=== PATIENT | female | born 1945 | race Caucasian/White ===

== ENCOUNTER → 2016-11-18 | Outpatient (CLI) | payer MEDICARE, OTHER ==
[~2016-11-18] MED LIST: B COMPLEX #11 TA1 PO; CALCIUM CITRAT200 M2; GLUCOSAMINE & C1 CA1 PO; LOTREL 10 MG-201 CAP PO; MAG-OX 400400 MG/TAB PO; NORCO 325 MG-51 TAB PO; NORCO 325 MG-7.1 TAB PO; OMEGA-31 SGL PO; ORACEA40MG PO; PRAVACHOL 20MG20 MG PO; ROXICODONE 55 MG/TAB PO; VITAMIND3 5000; VOLTAREN 75 DR75 MG PO
== END ==
LOC: MC.RAD 14:40
DX: Z12.31 Encounter for screening mammogram for malignant neoplasm of breast (principal); D24.1 Benign neoplasm of right breast

== ENCOUNTER 2017-02-03 16:04 | Emergency (ER) | payer MEDICARE, OTHER ==
[~2017-02-03] VITALS: Ht 154.9 cm; Wt 52.3 kg
[2017-02-03 16:09] VITALS: TEMP 98
[2017-02-03 16:46] LABS: BASO # 0.1 (0.0-0.2); BASO % 0.8 % (0.0-2.0); EOS # 0.2 (0.0-0.7); GRAN # 3.1 (1.4-6.5); GRAN % 51.2 % (42.2-75.2); LYMPH # 2.3 (1.2-3.4); LYMPH % 37.6 % (20.0-51.0); MEAN CELL VOLUME 89 fl (80.0-100.0); MEAN CORPUSCULAR HGB CONC 34 g/dl (33.0-37.0); MEAN PLATELET VOLUME 10.3 fl (7.4-10.4); MONO # 0.4 (0.1-0.6); MONO % 7.2 % (1.7-9.3); PLATELET COUNT 223 K/mm3 (130-400); RED BLOOD COUNT 3.81 M/mm3 (4.10-5.30); REDCELL DISTRIBUTION WIDTH-CV 13.2 % (11.5-14.5); WHITE BLOOD COUNT 6.1 K/mm3 (4.8-10.8)
[2017-02-03 16:48] LABS: HEMATOCRIT 33.7 % (37.0-47.0); HEMOGLOBIN 11.3 g/dl (12.5-16.0); MEAN CORPUSCULAR HEMOGLOBIN 30 pg (27.0-31.0)
[2017-02-03] MEDS ORDERED: LOTREL 10 MG-201 CAP PO (16:48)
[2017-02-03] MEDS ORDERED: PRAVACHOL 20MG20 MG PO (16:48)
[2017-02-03] MEDS ORDERED: MAG-OX 400400 MG/TAB PO (16:49)
[2017-02-03] MEDS ORDERED: GLUCOSAMINE & C1 CA1 PO (16:49)
[2017-02-03] MEDS ORDERED: OMEGA-31 SGL PO (16:49)
[2017-02-03] MEDS ORDERED: CALCIUM CITRAT200 M2 (16:49)
[2017-02-03] MEDS ORDERED: VITAMIND3 5000 (16:50)
[2017-02-03] MEDS ORDERED: B COMPLEX #11 TA1 PO (16:51)
[2017-02-03] MEDS ORDERED: ORACEA40MG PO (16:51)
[2017-02-03 17:00] LABS: CALCIUM 9.6 mg/dL (8.4-10.2); CREATININE, serum 0.89 mg/dL (0.52-1.25); POTASSIUM 3.5 mmol/L (3.4-5.0)
[2017-02-03] MEDS ORDERED: NORCO 325 MG-51 TAB PO (17:51)
[2017-02-03] MEDS ORDERED: VOLTAREN 75 DR75 MG PO (17:51)
[2017-02-03 18:02] VITALS: BP 115/61; PULSE 60
== END 2017-02-03 18:21 | disposition home or self-care (01) ==
LOC: COL.ER 16:04
PROVIDERS: Emergency Medicine
DX: S42.291A Other displaced fracture of upper end of right humerus, initial encounter for closed fracture (principal); S09.90XA Unspecified injury of head, initial encounter; S00.83XA Contusion of other part of head, initial encounter; W01.198A Fall on same level from slipping, tripping and stumbling with subsequent striking against other object, initial encounter; Y92.009 Unspecified place in unspecified non-institutional (private) residence as the place of occurrence of the external cause; I10 Essential (primary) hypertension
CPT/HCPCS: J2765; J3010; J7040

== ENCOUNTER 2017-05-17 09:22 | Emergency (ER) | payer MEDICARE, OTHER ==
[~2017-05-17] VITALS: Ht 154.9 cm; Wt 52.3 kg
[~2017-05-17 09:22] MED LIST changes: -NORCO 325 MG-7.1 TAB PO; -ROXICODONE 55 MG/TAB PO
[2017-05-17 09:27] VITALS: BP 162/78; TEMP 98.3
[2017-05-17] MEDS ORDERED: NORCO 325 MG-51 TAB PO (11:03)
[2017-05-17 11:15] VITALS: PULSE 60
== END 2017-05-17 11:16 | disposition home or self-care (01) ==
LOC: COL.ER 09:22 → MEDICAL 10:54 → COL.ER 11:16
DX: S52.572A Other intraarticular fracture of lower end of left radius, initial encounter for closed fracture (principal); W18.30XA Fall on same level, unspecified, initial encounter; Y92.009 Unspecified place in unspecified non-institutional (private) residence as the place of occurrence of the external cause

== ENCOUNTER 2017-05-22 05:31 | Day surgery (SDC) | payer MEDICARE, OTHER ==
[~2017-05-22] VITALS: Ht 154.9 cm; Wt 54.0 kg
[2017-05-22] VITALS (7 sets, daily range): BP systolic 114–131; BP diastolic 59–71; PULSE 58–65; TEMP 97.4–97.7
[2017-05-22] MEDS ORDERED: ROXICODONE 55 MG/TAB PO (10:14)
[2017-05-22] MEDS ORDERED: NORCO 325 MG-7.1 TAB PO (10:15)
== END 2017-05-22 10:50 ==
LOC: SDCO 05:31
DX: S52.572A Other intraarticular fracture of lower end of left radius, initial encounter for closed fracture (principal); D64.9 Anemia, unspecified; E78.00 Pure hypercholesterolemia, unspecified; I10 Essential (primary) hypertension; Z85.828 Personal history of other malignant neoplasm of skin; Z87.891 Personal history of nicotine dependence; Z80.9 Family history of malignant neoplasm, unspecified; Z83.3 Family history of diabetes mellitus; Z82.49 Family history of ischemic heart disease and other diseases of the circulatory system; Z82.62 Family history of osteoporosis; Z84.1 Family history of disorders of kidney and ureter; Z82.61 Family history of arthritis
CPT/HCPCS: C1713; J0690; J2250; J2704; J2765; J2795; J3010; J7120

== ENCOUNTER → 2018-07-01 | Outpatient (CLI) | payer MEDICARE, OTHER ==
[~2018-07-01] MED LIST changes: +NORCO 325 MG-7.1 TAB PO; +ROXICODONE 55 MG/TAB PO
== END ==
LOC: MC.RAD 12:53
DX: N60.02 Solitary cyst of left breast (principal)

== ENCOUNTER 2018-07-20 10:59 | Outpatient (CLI) | payer MEDICARE, OTHER ==
[2018-07-20] VITALS (8 sets, daily range): BP systolic 123–159; BP diastolic 75–88; PULSE 63–72; TEMP 98.1–98.3
[2018-07-20] MEDS ORDERED: LOTREL 5/10MG C1 CAP PO (11:59)
[2018-07-20] MEDS ORDERED: FISH OIL PO (12:01)
[2018-07-20] MEDS ORDERED: BORAGE PO (12:01)
[2018-07-20] MEDS ORDERED: FLAX PO (12:01)
[2018-07-20] MEDS ORDERED: GLUCOSAMINE MSM1 TAB PO (12:02)
[2018-07-20] MEDS ORDERED: CENTRUM1 TA1 (12:04)
[2018-07-20] MEDS ORDERED: B-121000 MCG PO (12:04)
[2018-07-20] MEDS ORDERED: PLAVIX 75MG TAB75 MG PO (12:08)
== END 2018-07-20 16:10 | disposition home or self-care (01) ==
LOC: COL.CAR 10:59
DX: S22.070A Wedge compression fracture of T9-T10 vertebra, initial encounter for closed fracture (principal); G89.29 Other chronic pain; E78.5 Hyperlipidemia, unspecified; M80.00XS Age-related osteoporosis with current pathological fracture, unspecified site, sequela; I10 Essential (primary) hypertension; K76.89 Other specified diseases of liver; I25.10 Atherosclerotic heart disease of native coronary artery without angina pectoris; Z90.721 Acquired absence of ovaries, unilateral; Z87.891 Personal history of nicotine dependence; Z82.49 Family history of ischemic heart disease and other diseases of the circulatory system
CPT/HCPCS: J2250; J3010; J7120

== ENCOUNTER 2018-09-01 12:45 | Day surgery (SDC) | payer MEDICARE, OTHER ==
[~2018-09-01] VITALS: Ht 157.5 cm; Wt 53.6 kg
[~2018-09-01 12:45] MED LIST changes: +B-121000 MCG PO; +BORAGE PO; +CENTRUM1 TA1; +FISH OIL PO; +FLAX PO; +GLUCOSAMINE MSM1 TAB PO; +LOTREL 5/10MG C1 CAP PO; +PLAVIX 75MG TAB75 MG PO; -VITAMIND3 5000; +VITAMIND3 5000 PO
[2018-09-01 13:24] LABS: HEMOGLOBIN 11.1 g/dl (12.5-16.0); MEAN CELL VOLUME 89 fl (80.0-100.0); MEAN CORPUSCULAR HEMOGLOBIN 30 pg (27.0-31.0); MEAN CORPUSCULAR HGB CONC 34 g/dl (33.0-37.0); MEAN PLATELET VOLUME 9.9 fl (7.4-10.4); PLATELET COUNT 224 K/mm3 (130-400); RED BLOOD COUNT 3.71 M/mm3 (4.10-5.30)
[2018-09-01 13:28] LABS: PROTHROMBIN TIME 11.1 SECONDS (9.7-12.8)
[2018-09-01] MEDS ORDERED: CALTRATE-600 W600 MG PO (13:39)
[2018-09-01] MEDS ORDERED: OMEGA-3 1000 MG1 CAP PO (13:40)
[2018-09-01] MEDS ORDERED: TYLENOL PM EXTR1 TA1 PO (13:41)
[2018-09-01 13:42] LABS: CALCIUM 10.1 mg/dL (8.4-10.2); CREATININE, serum 0.91 mg/dL (0.52-1.25); POTASSIUM 3.9 mmol/L (3.4-5.0)
[2018-09-01 13:54] VITALS: BP 117/80; PULSE 71; TEMP 98
== END 2018-09-01 14:42 | disposition home or self-care (01) ==
LOC: COL.CAR 12:45
PROVIDERS: Internal Medicine Interventional Cardiology
DX: R07.89 Other chest pain (principal); R94.39 Abnormal result of other cardiovascular function study; I65.21 Occlusion and stenosis of right carotid artery; I25.10 Atherosclerotic heart disease of native coronary artery without angina pectoris; I10 Essential (primary) hypertension; E78.5 Hyperlipidemia, unspecified; Z79.02 Long term (current) use of antithrombotics/antiplatelets; Z87.891 Personal history of nicotine dependence

== ENCOUNTER → 2018-10-06 | Outpatient (CLI) | payer MEDICARE, OTHER ==
[~2018-10-06] MED LIST changes: +CALTRATE-600 W600 MG PO; +OMEGA-3 1000 MG1 CAP PO; +TYLENOL PM EXTR1 TA1 PO
== END ==
LOC: COL.RAD 13:00
DX: I65.21 Occlusion and stenosis of right carotid artery (principal); I67.2 Cerebral atherosclerosis; R94.39 Abnormal result of other cardiovascular function study
CPT/HCPCS: Q9967

== ENCOUNTER 2019-04-30 13:56 | Outpatient (RCR) | payer MEDICARE, OTHER ==
[~2019-04-30] VITALS: Ht 157.5 cm; Wt 55.0 kg
[2019-04-30] VITALS (7 sets, daily range): BP systolic 93–148; BP diastolic 48–84; PULSE 54–67; TEMP 97.4–97.8
[2019-04-30] MEDS ORDERED: DOXYCYCLINE 50M50 MG PO (14:21)
[2019-04-30] MEDS ORDERED: PRAVACHOL 40MG40 MG PO (14:22)
[2019-04-30] MEDS ORDERED: ASPIRIN E.C. 8181 MG PO (14:24)
--- NOTE | 2019-04-30 16:10 | NUR ---
Pt arsen IV iron well. Pt observed for 30 min post infusion.
--- NOTE | 2019-04-30 16:15 | NUR ---
Pt reports slight lightheadedness with ambulation. Pt sat in recliner and reclined. VS stable see flowsheet.
--- NOTE | 2019-04-30 16:20 | NUR ---
Pt reports she feels better. Pt ambulating in [place] with nurse.
--- NOTE | 2019-04-30 16:25 | NUR ---
Pt had syncopal episode while ambulating. Pt stated she was dizzy and placed in w/c. Pt became unresponsive, for approxamitly 30 sec and was awake by the time we got back to the room. Pt clammy, vomiting. See VS flowsheet.
--- NOTE | 2019-04-30 17:40 | NUR ---
Pt given crackers and orange juice.
--- NOTE | 2019-04-30 17:50 | NUR ---
Pt up to bathroom with SBA. Pt had loose stool and reports more dizziness. Pt and requested to be seen in ER. ER charge nurse notified and pt transfer to ER registration per w/c.
== END 2019-05-04 15:16 | disposition home or self-care (01) ==
LOC: EUO 13:56
DX: D50.9 Iron deficiency anemia, unspecified (principal); Z79.899 Other long term (current) drug therapy
CPT/HCPCS: J2405; J2916; J7040

== ENCOUNTER 2019-04-30 17:55 | Emergency (ER) | payer MEDICARE, OTHER ==
[~2019-04-30] VITALS: Ht 157.5 cm; Wt 53.6 kg
[~2019-04-30 17:55] MED LIST changes: +ASPIRIN E.C. 8181 MG PO; +DOXYCYCLINE 50M50 MG PO; +PRAVACHOL 40MG40 MG PO
[2019-04-30 18:59] LABS: BASO # 0.1 (0.0-0.2); BASO % 0.7 % (0.0-2.0); EOS # 0.1 (0.0-0.7); GRAN # 7.3 (1.4-6.5); GRAN % 78.1 % (42.2-75.2); LYMPH # 1.3 (1.2-3.4); MEAN CELL VOLUME 79 fl (80.0-100.0); MEAN CORPUSCULAR HGB CONC 31 g/dl (33.0-37.0); MEAN PLATELET VOLUME 10.3 fl (7.4-10.4); MONO # 0.6 (0.1-0.6); MONO % 5.9 % (1.7-9.3); PLATELET COUNT 281 K/mm3 (130-400); RED BLOOD COUNT 3.97 M/mm3 (4.10-5.30); REDCELL DISTRIBUTION WIDTH-CV 17.6 % (11.5-14.5)
[2019-04-30 19:00] LABS: HEMATOCRIT 31.3 % (37.0-47.0); HEMOGLOBIN 9.7 g/dl (12.5-16.0); MEAN CORPUSCULAR HEMOGLOBIN 24 pg (27.0-31.0)
[2019-04-30 19:09] LABS: INR 0.9 (0.8-3.0); PROTHROMBIN TIME 10.2 SECONDS (9.7-12.8)
[2019-04-30 19:11] LABS: PARTIAL THROMBOPLASTIN TIME 28.9 SECONDS (26.0-37.0)
[2019-04-30 19:16] LABS: ALANINE AMINOTRANSFERASE 14 U/L (9-52); ALBUMIN 3.4 gm/dL (3.5-5.0); ALKALINE PHOSPHATASE 51 U/L (50-136); ANION GAP 8 mmol/L (7-16); AST,SGOT 25 U/L (15-37); BILIRUBIN,TOTAL 0.2 mg/dL (0.0-1.0); BLOOD UREA NITROGEN 20 mg/dL (7-17); CALCIUM 8.4 mg/dL (8.4-10.2); CARBON DIOXIDE 21 mmol/L (22-30); CHLORIDE 108 mmol/L (98-107); CREATININE, serum 0.89 (0.52-1.25); GLUCOSE 114 mg/dL (74-106); POTASSIUM 3.7 mmol/L (3.4-5.0); SODIUM 137 mmol/L (137-145); TOTAL PROTEIN 6.2 gm/dL (6.4-8.2)
[2019-04-30 19:25] LABS: TROPONIN-I < 0.012 ng/mL (0.000-0.035)
[2019-04-30 21:37] VITALS: BP 118/63; PULSE 72
== END 2019-04-30 21:49 | disposition home or self-care (01) ==
LOC: COL.ER 17:55
PROVIDERS: Emergency Medicine
DX: L25.8 Unspecified contact dermatitis due to other agents (principal); T45.4X5A Adverse effect of iron and its compounds, initial encounter; R55 Syncope and collapse; I25.10 Atherosclerotic heart disease of native coronary artery without angina pectoris; I10 Essential (primary) hypertension; E78.5 Hyperlipidemia, unspecified; F17.210 Nicotine dependence, cigarettes, uncomplicated; Z79.82 Long term (current) use of aspirin
CPT/HCPCS: J7030

== ENCOUNTER → 2019-10-11 | Outpatient (CLI) | payer MEDICARE, OTHER | LOC: MC.RAD 11:30 | DX: Z12.31 Encounter for screening mammogram for malignant neoplasm of breast (principal) ==

== ENCOUNTER 2021-01-05 06:04 | Day surgery (SDC) | payer MEDICARE, OTHER ==
[~2021-01-05] VITALS: Ht 154.9 cm; Wt 55.1 kg
[2021-01-05 06:20] VITALS: BP 126/70; PULSE 77; TEMP 97.9
[2021-01-05] MEDS ORDERED: LOTREL 5/10MG C1 CAP PO (06:55)
[2021-01-05] MEDS ORDERED: DOXYCYCLINE 50M50 MG PO (06:55)
[2021-01-05] MEDS ORDERED: CRESTOR20 MG PO (06:56)
[2021-01-05] MEDS ORDERED: FORTEO250 MCG/ML SQ (06:57)
[2021-01-05] MEDS ORDERED: VITAMIND3 5000 PO (06:59)
[2021-01-05] MEDS ORDERED: CITRACAL + D CA1 TAB PO (07:00)
[2021-01-05] MEDS ORDERED: OMEGA-3 1000 MG1 CAP PO (07:01)
[2021-01-05] MEDS ORDERED: GLUCOSAMINE MSM1 TAB PO (07:02)
[2021-01-05] MEDS ORDERED: ASPIRIN 81M81 MG/TA2 PO (07:02)
[2021-01-05] MEDS ORDERED: B COMPLEX #11 TA1 PO (07:03)
[2021-01-05] MEDS ORDERED: VITRON-C PO (07:04)
[2021-01-05] MEDS ORDERED: CENTRUM CHEWAB1 EAC3 PO (07:04)
[2021-01-05] MEDS ORDERED: NATURAL POTASS595 MG PO (07:05)
[2021-01-05] MEDS ORDERED: NATURAL MAGNES200 MG PO (07:05)
[2021-01-05] MEDS ORDERED: TYLENOL PM EXTR1 TA1 PO (07:07)
[2021-01-05 07:35] VITALS: BP 104/45; PULSE 59; TEMP 97.7
--- NOTE | 2021-01-05 07:35 | NUR ---
Patient arrives back to [facility] alert, denies pain or nausea. Patient ambulated from cart to chair with standby assist without any complications. Patient monitor applied, vitals stable. Patient's spouse at bedside.
[2021-01-05 07:45] VITALS: BP 98/59; PULSE 60
--- NOTE | 2021-01-05 07:45 | NUR ---
Patient given coffee and muffin at this time.
--- NOTE | 2021-01-05 07:55 | NUR ---
Patient tolerated food and drink without any complications.
[2021-01-05 08:00] VITALS: BP 109/72; PULSE 60
--- NOTE | 2021-01-05 08:00 | NUR ---
Dr Rousseau into see patient at this time to go over results.
--- NOTE | 2021-01-05 08:05 | NUR ---
Dismissal instructions gone over with patient and patient's spouse. Both verbalize understanding and all questions ansewred.
--- NOTE | 2021-01-05 08:10 | NUR ---
Patient discharged to private vehicle at patient enterance via wheelchair without any complications. Patient leaves thanking staff for services.
== END 2021-01-05 08:10 | disposition home or self-care (01) ==
LOC: SDCO
DX: R19.5 Other fecal abnormalities (principal); K62.89 Other specified diseases of anus and rectum; K57.30 Diverticulosis of large intestine without perforation or abscess without bleeding; I10 Essential (primary) hypertension; E78.5 Hyperlipidemia, unspecified; Z87.891 Personal history of nicotine dependence; Z79.82 Long term (current) use of aspirin; Z79.899 Other long term (current) drug therapy; Z90.89 Acquired absence of other organs; Z90.721 Acquired absence of ovaries, unilateral; Z20.822 Contact with and (suspected) exposure to COVID-19; Z83.6 Family history of other diseases of the respiratory system; Z80.9 Family history of malignant neoplasm, unspecified; Z83.3 Family history of diabetes mellitus; Z82.49 Family history of ischemic heart disease and other diseases of the circulatory system; Z80.1 Family history of malignant neoplasm of trachea, bronchus and lung; Z80.6 Family history of leukemia; Z80.0 Family history of malignant neoplasm of digestive organs
CPT/HCPCS: J2405; J2704; J7120

== ENCOUNTER → 2021-01-24 | Outpatient (CLI) | payer MEDICARE, OTHER ==
[~2021-01-24] MED LIST changes: +ASPIRIN 81M81 MG/TA2 PO; +CENTRUM CHEWAB1 EAC3 PO; +CITRACAL + D CA1 TAB PO; +CRESTOR20 MG PO; +FORTEO250 MCG/ML SQ; +NATURAL MAGNES200 MG PO; +NATURAL POTASS595 MG PO; +VITRON-C PO
== END ==
LOC: MC.RAD 14:40
DX: Z12.31 Encounter for screening mammogram for malignant neoplasm of breast (principal)

== ENCOUNTER 2023-10-29 14:58 | Outpatient (CLI) | payer MEDICARE, OTHER ==
[~2023-10-29] VITALS: Ht 154.9 cm; Wt 55.7 kg
[2023-10-29 15:20] VITALS: BP 169/73; PULSE 66; TEMP 98
--- NOTE | 2023-10-29 15:27 | NUR ---
pt tolerated injection well. pt vs remained within normal limits and pt ambulated independently to main lobby following injection. pt free from acute concerns and complaints at time of discharge.
== END 2023-10-29 15:28 | disposition home or self-care (01) ==
LOC: EUO 14:58
DX: M81.0 Age-related osteoporosis without current pathological fracture (principal)
CPT/HCPCS: J0897